=== PATIENT | female | born 1990 | race Caucasian/White ===

== ENCOUNTER 2019-04-12 23:27 | Emergency (ER) | payer SELFPAY ==
[~2019-04-12] VITALS: Ht 175.3 cm; Wt 68.0 kg
[2019-04-12] MEDS ORDERED: ONDANSETRON 2MG/ML, 2ML ONE (23:30)
[2019-04-12] MEDS ORDERED: ONDANSETRON 2MG/ML, 2ML IVPush ONE (23:30)
[2019-04-12] MEDS ORDERED: NALOXONE 1 MG/ML, 2ML IVPush ONE (23:30)
[2019-04-12] MEDS ORDERED: SODIUM CHLORIDE FLUSH 10ML SYR IVF ONE (23:30)
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
[2019-04-12 23:46] VITALS: BP 130/87
[2019-04-13] LABS: BASOPHILS # (AUTO) 0.02 x10^3/uL (0-0.1); BASOPHILS % (AUTO) 0 % (0-1); EOSINOPHILS % (AUTO) 0 % (1-7); LYMPHOCYTES # (AUTO) 2.05 x10^3/uL (1-3.4); LYMPHOCYTES % (AUTO) 46 % (22-44); MD NO; MEAN CORPUSCULAR HGB CONC 34.2 g/dL (32.4-35.8); MEAN CORPUSCULAR VOLUME 93.8 fL (80-100); MEAN PLATELET VOLUME 7.9 fL (7.4-10.4); MONOCYTES # (AUTO) 0.23 x10^3/uL (0.2-0.8); MONOCYTES % (AUTO) 5 % (2-9); NEUTROPHILS # (AUTO) 2.21 x10^3/uL (1.8-6.8); NEUTROPHILS % (AUTO) 49 % (42-75); PLATELET COUNT 272 x10^3/uL (130-400); RED BLOOD COUNT 4.66 x10^6/uL (3.82-5.3); RED CELL DISTRIBUTION WIDTH 13.2 % (9.6-15.2)
[2019-04-13 00:10] LABS: ANION GAP 9 mmol/L (5-15); CHLORIDE 113 mmol/L (98-107); CREATININE 0.78 mg/dL (0.55-1.02)
--- NOTE | 2019-04-13 00:10 | NUR ---
PT REMAINS AWAKE/ALERT. NOW TEXTING ON CELL PHONE. RR WNL, SPO2 >90% ON RA. PT MOVED VIA GURNEY TO ROOM 18. REPORT TO DEJUAN COVARRUBIAS
--- NOTE | 2019-04-13 00:14 | NUR ---
REPORT FROM DEJUAN BORGES. PT TRANSFERRED TO NEW ROOM WITHOUT ISSUE. CALL LIGHT IN REACH.
[2019-04-13] MEDS ORDERED: hydrOXyzine 50MG TABLET ONE (00:37)
[2019-04-13] MEDS ORDERED: HYDROXYZINE PAMOATE 50MG CAP PO ONE (01:00)
== END 2019-04-13 01:32 | disposition home or self-care (01) ==
LOC: EDBD 23:27 → ED 23:59
DX: J96.01 Acute respiratory failure with hypoxia (principal); T40.601A Poisoning by unspecified narcotics, accidental (unintentional), initial encounter; Y92.9 Unspecified place or not applicable
CPT/HCPCS: 36415; 71045; 80048; 84703; 85025; 93005; 96374; 96375; 99291; J2310; J2405